=== PATIENT | male | born 1960 | race Caucasian/White ===

== ENCOUNTER → 2017-01-22 | Outpatient (CLI) | payer OTHER ==
[~2017-01-22] MED LIST: ASCO10007 PO; ASPI-557 PO; CARV12.5 PO; CHLO1TAB34 PO; CLON0.2T PO; FISH OIL OMEGA1 EAC1 PO; FLUT12AE16 ORAL INH; LOSA100T44 PO; METF500T4 PO; OMEP40CA52 PO; OXYC5TAB84 PO; PRED10TA PO
--- NOTE | 2017-01-22 09:58 | DI ---
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 This is similar to the previous examination. Axial imaging L12 disc space is unremarkable. L2-3 disc is unremarkable. L3-4 disc is unremarkable. Five disc which showed the degenerative changes shows mild broad-based bulging without significant canal stenosis and just minimal neural foraminal narrowing. L5-S1 shows degenerative changes in the disc with mild broad-based disc bulging causing neural foraminal narrowing but no marked stenosis. Impression: 1. Similar findings the previous study with mild degenerative changes at L4-5 and L5-S1 disc space levels although, no marked stenosis is appreciated. Patient did show mild neural foraminal narrowing both at L45 and L5-S1 levels. 2. No acute vertebral body fractures or significant alteration in the bony alignment. .
== END ==
LOC: IMA 07:17
PROVIDERS: ATTEND Family Medicine
DX: M54.5 Low back pain (principal); G83.10 Monoplegia of lower limb affecting unspecified side; M51.16 Intervertebral disc disorders with radiculopathy, lumbar region